=== PATIENT | female | born 1995 | race Caucasian/White ===

== ENCOUNTER 2016-09-11 22:01 | Emergency (ER) | payer OTHER ==
[~2016-09-11] VITALS: Ht 165.1 cm; Wt 63.6 kg
[~2016-09-11 22:01] MED LIST: NPR500T PO
[2016-09-11 22:14] VITALS: BP 146/92; PULSE 90; RESP 18; O2SAT 100
--- NOTE | 2016-09-11 23:25 | ED.REPORT ---
HPI-Chest Pain Under 40 Date of Service Sep 11, 2016 ED Provider: Jose Cruz Glez MD Patient is a 21 year old female who presents to the ED complaining of chest pain onset five hours ago. The patient states that the pain started while lifting an object. It in non-exertional and radiates to her left arm. She rates the pain as a 5/10 and describes it as feeling as though she pulled a muscle. The pain is worsened by deep inspiration and has been constant since onset. Associated symptoms include shortness of breath, feeling flushed, nausea, anxiety, stress and heart palpitations. Patient denies recent travel. Nursing Notes Stated Complaint: CHEST PAIN,SOB Chief Complaint: Chest Pain Nursing Notes Reviewed: Yes Allergies: Coded Allergies: No Known Allergies (Unverified , 09/11/16) Scheduled Famotidine (Pepcid) 20 Mg Tablet 20 MG PO BID Scheduled PRN Ibuprofen (Ibuprofen) 600 Mg Tablet 600 MG PO QID PRN PRN For Pain Naproxen (Naproxen) 500 Mg Tab 500 MG PO BID PRN PRN For Pain General Time Seen by MD: 22:50 Chief Complaint Chest pain Hx Obtained From: Patient Arrived By: Walk-in Sudden in Onset?: Yes Onset Occurred: 5 - 8 hours ago Context of Onset: Lifting Symptom Duration: Since onset Radiation: : Arm left Severity: Current: Pain level 5 out of 10 Recent Healthcare: No recent doctor visit, No recent hospitalization Similar Sx Previous: No Past Medical History Past Medical History Reports: Asthma (sports-induced) Past Surgical History Bunionectomy Smoking History Never Smoker Social History Other Social History: Good social support Ambulatory Status Independent Review of Systems Review of Systems Note: flushing Respiratory: Reports: Pleuritic pain, Shortness of breath, Denies: Non-productive cough Cardiovascular: Reports: Chest pain, Palpitations GI: Reports: Nausea Musculoskeletal: Reports: Extremity pain (left arm) Skin: Denies Rash Psychiatric: Reports: Anxiety, Stress Complete sys rev & neg: except as marked. Physical Exam Initial Vital Signs Vital Signs (First) Date Time Temp Pulse Resp B/P Pulse Ox O2 Delivery O2 Flow Rate FiO2 09/11/16 22:14 37.2 90 18 146/92 100 Room Air Initial VS: Reviewed General/Constitutional: Awake, Alert, No acute distress Respiratory / Chest: Atraumatic, Breath sounds NL, Breath sounds = bilat, No respiratory distress Cardiovascular: Heart rate NL, Regular rhythm, Heart sounds NL no signs clubbing or edema Neck: Atraumatic, Supple, Full range of motion Abdomen: Atraumatic, Soft, Non-tender Back: Atraumatic, Full range of motion Lower Extremity / Pelvis / MS: Atraumatic, Full range of motion no cords Skin: Atraumatic, Color NL, No rash Neurologic: Oriented X3, Speech NL, No motor deficits, No sensory deficits Psychiatric: Affect NL, Mood NL Head / Eyes: Atraumatic, Normocephalic, PERRL, EOMI ENT: Atraumatic, Airway patent, Mucous membranes moist Upper Extremity / MS: Atraumatic, Full range of motion reproducible pain with minimal palpation of costochondral junction positional Interpretation & Diagnostics Lab Results Interpretation Result Diagram: 09/11/160 09/11/16 2210 Test 09/11/16 22:10 09/11/16 23:10 09/12/16 00:30 White Blood Count 9.7th/mm3 (3.8-10.1) Red Blood Count 5.15mil/mm3 (3.90-5.20) Hemoglobin 14.9g/dL (12.0-15.6) Hematocrit 42.2% (35.0-46.0) Mean Corpuscular Volume 81.9fL (81-100) Mean Corpuscular Hemoglobin 28.9pg (27.0-35.0) Mean Corpuscular Hemoglobin Concent 35.3% (32.0-37.0) Red Cell Distribution Width 12.7% (12.3-15.4) Platelet Count 396bil/L (150-400) Neutrophils (%) (Auto) 46.3% (40-74) Lymphocytes (%) (Auto) 42.3% (14-46) Monocytes (%) (Auto) 8.1% (4-12) Eosinophils (%) (Auto) 2.4% (0-5) Basophils (%) (Auto) 0.6% (0-3) Erythrocyte Sedimentation Rate 1mm/hr (0-32) Sodium Level 135mEq/L (134-144) Potassium Level 3.6mEq/L (3.5-5.2) Chloride Level 95mEq/L (97-108) Carbon Dioxide Level 25mmol/L (18-29) Blood Urea Nitrogen 12mg/dL (6-20) Creatinine 0.64mg/dL (0.57-1.00) Estimat Glomerular Filtration Rate 169mL/min (>59) Glucose Level 98mg/dL (60-99) Calcium Level 9.6mg/dL (8.5-10.1) Total Bilirubin 0.2mg/dL (0.0-1.2) Aspartate Amino Transf (AST/SGOT) 18U/L (0-50) Alanine Aminotransferase (ALT/SGPT) 15U/L (0-32) Alkaline Phosphatase 68U/L (25-150) Total Protein 7.6g/dL (6.4-8.4) Albumin 4.7g/dL (3.4-5.0) Hold Purple Top Tube Received (Received) Hold Blue Top Tube Received (Received) Hold [place] Top Tube Received (Received) Hold [place] Top Tube Received (Received) Hold Urine Received (Received) ECG Interpretation Time: 23:44 Interpreted by: ED physician Normal ECG Interpretation: Normal rate (71), Normal sinus rhythm X-Ray Chest Interpretation Chest Xray Interpretation: no acute findings Interpretation / Wet Read by: Wet read ED physician Re-Eval/Medical Decision Med Decision/Clinical Course 21-year-old in good health generally presents with sharp pleuritic chest pain elicitable by palpation. EKG is reassuringly negative. Labs are negative. No indication of serious pathology. Chest x-ray shows no pneumothorax, no infiltrate and no effusion. Improved after Toradol here. Home with ibuprofen prompt return if worse or new symptoms develop Source of Hx: Old records Re-Evaluation/Progress #1: Time of Eval: 23:58 Re-Evaluation/Progress Note: Rechecked patient. Discussed EKG and X-ray results. Re-Evaluation/Progress #2: Time of Eval: 01:37 Patient Status: Condition improved Re-Evaluation/Progress Note: Rechecked patient. Further discussed results and plan for discharge. The patient understands and agrees to the plan for discharge. All questions were addressed. Return to ED warnings were given. Counseled Regarding: Diagnosis, Lab results, Need for follow-up, When/why to return to ED Discharge & Departure Primary Impression: Non-cardiac chest pain Additional Impressions: Costochondritis, acute Chest pain Disposition: Home Discharge Condition All VS Reviewed: Yes Condition: Stable Additional Instructions: You are very low risk for significant pathology, and your EKG and chest x-ray are entirely reassuring. The fact that we can elicit pain by palpation superficially on her chest wall, indicates that is the origin of your pain. This appears to be simple costochondritis. Began with ibuprofen 600 mg up to four times daily. Take it a minimum of three times daily for the next several days. Begin Pepcid twice daily as long as you are on ibuprofen. Follow-up with your doctor in the office. Return promptly if you develop worsening shortness of breath, cough or sputum production, bloody sputum, or any other new symptom of concern. Referrals: [facility] Scribe Attestation Portions of this note were transcribed by Sarai Butler and Artur Taylor. I, Dr. Glez personally performed the history, physical exam and medical decision -making; I reviewed and confirmed the accuracy of the information in the transcribed note. Signed by: Cassie Dockery, 09/12/16 and 0144. copies to: [facility] Jose Cruz Glez MD Sep 11, 2016 23:25 Josefa Butler Sep 11, 2016 23:37 ARTUR TAYLOR Sep 12, 2016 00:49
[2016-09-12 00:25] LABS: BASOPHILS % (AUTO) 0.6 % (0-3); EOSINOPHILS % (AUTO) 2.4 % (0-5); MONOCYTES % (AUTO) 8.1 % (4-12); Mean Corpuscular Hemoglobin 28.9 pg (27.0-35.0); Mean Corpuscular Volume 81.9 fL (81-100); NEUTROPHILS % (AUTO) 46.3 % (40-74); Platelet Count 396 bil/L (150-400)
[2016-09-12 00:51] LABS: ERYTHROCYTE SEDIMENTATION RATE 1 mm/hr (0-32)
[2016-09-12] MEDS ORDERED: IBUP-1827 PO (01:12)
[2016-09-12] MEDS ORDERED: FAMO20T PO (01:12)
[2016-09-12 01:40] VITALS: BP 114/68; PULSE 90; RESP 22; O2SAT 100
--- NOTE | 2016-09-12 10:41 | DRSVH ---
PROCEDURE: X-RAY CHEST, TWO VIEWS ([id number]) INDICATIONS: pleruitic cp TECHNIQUE: 2 views of the chest were acquired. COMPARISON: None. FINDINGS: Surgical changes and devices: None. Lungs and pleura: No pleural effusions or pneumothorax. Lungs are clear. Mediastinum: Mediastinal contours are normal. Heart size is normal. Bones and chest wall: No suspicious bony abnormalities. Soft tissues appear unremarkable. IMPRESSION: No acute cardiopulmonary disease. Dictated by: Gely Kong M.D. on 09/12/2016 at 10:39 Approved by: Gely Kong M.D. on 09/12/2016 at 10:40
== END 2016-09-12 01:41 | disposition home or self-care (01) ==
LOC: SED 22:01
DX: R07.89 Other chest pain (principal); R06.02 Shortness of breath; J45.909 Unspecified asthma, uncomplicated